=== PATIENT | female | born 1995 | race Caucasian/White ===

== ENCOUNTER 2020-02-05 21:42 | Observation (INO) ==
[2020-02-05] MEDS ORDERED: Ondansetron 4 MG/2 ML VIAL IVP ONE (22:13)
[2020-02-05] MEDS ORDERED: 0.9 % Sodium Chloride 1,000 ML IVC ONE (22:13)
[2020-02-05 22:21] LABS: Basophils # 0.1 K/mcL (0.0-0.2); Basophils % 0.3 %; Eosinophils # 0.1 K/mcL (0.0-0.6); Eosinophils % 0.5 %; Hematocrit 37.6 % (35.3-44.9); Hemoglobin 12.9 g/dL (11.5-15.4); Immature Granulocytes % 0.8 % (0-4); Lymphocytes # 2.3 K/mcL (0.6-4.6); Lymphocytes % 14.6 %; Mean Corpuscular HGB Conc 34.3 g/dL (31.6-35.5); Mean Corpuscular Hemoglobin 30.8 pg (28.0-33.3); Mean Corpuscular Volume 89.7 fL (83.0-100.0); Mean Platelet Volume 9.2 fL (9.4-12.4); Monocytes # 0.8 K/mcL (0.0-1.3); Monocytes % 4.9 %; Neutrophils # 12.2 K/mcL (1.6-8.9); Platelet Count 377 K/mcL (140-400); Red Blood Count 4.19 M/mcL (3.82-4.97); Red Cell Distribution Width 12.2 % (11.5-14.5); Segmented Neutrophils % 78.9 %; White Blood Count 15.5 K/mcL (4.3-11.1)
[2020-02-05 22:42] LABS: Alanine Aminotransferase 9 Units/L (7-52); Albumin 4.1 g/dL (3.5-5.7); Albumin/Globulin Ratio 1.3 (1.1-2.2); Alkaline Phosphatase 63 Units/L (34-104); Aspartate Amino Transferase 13 Units/L (13-39); BUN/Creatinine Ratio 15 (6-26); Bilirubin,Total 0.7 mg/dL (0.3-1.0); Blood Urea Nitrogen 9 mg/dL (6-20); Calcium 9.2 mg/dL (8.6-10.3); Carbon Dioxide 21 mEq/L (23-29); Chloride 104 mEq/L (98-107); Globulin 3.1 g/dL (2.4-3.5); Glucose 94 mg/dL (70-105); Magnesium 1.9 mg/dL (1.6-2.6); Osmolality,Calculated 278 (280-300); Phosphorous 4.1 mg/dL (2.7-4.5); Potassium 3.6 mEq/L (3.5-5.1); Sodium 135 mEq/L (136-145); Total Protein 7.2 g/dL (6.4-8.9); eGFR For African Americans > 60 (> 60); eGFR For Non-African Americans > 60 (> 60)
[2020-02-05 23:50] LABS: Bacteria,Urine Few per hpf (None-Few); Bilirubin,Urine Negative (Negative); Blood,Urine Negative (Negative); Clarity,Urine Turbid (Clear); Color,Urine Yellow (Yellow); Glucose,Urine (UA) Normal (Normal); Ketones,Urine 40 mg/dL (Negative); Leukocyte Esterase,Urine Large (Negative); Mucus,Urine Many per lpf (None-Few); Nitrite,Urine Negative (Negative); PH,Urine 6.5 pH Units (5.0-8.0); Protein,Urine 30 mg/dL (Neg-Trace); Squamous Epithelial Cell,Urine Moderate per hpf (None-Few); Urobilinogen,Urine Normal (Normal)
[2020-02-06] MEDS ORDERED: Ondansetron 4 MG/2 ML VIAL IVP ONE (00:23)
[2020-02-06] MEDS ORDERED: Metoclopramide 10 MG/2 ML VIAL IVP ONE (04:36)
[2020-02-06] MEDS ORDERED: cefTRIAXone 1,000 MG in Water for inj. (sterile) 10 ML IVP ONE (05:36)
[2020-02-06] MEDS ORDERED: Naloxone 0.4 MG/ML INJ IVP PRN (06:17)
[2020-02-06] MEDS ORDERED: Ondansetron 4 MG/2 ML VIAL IVP PRN ×2 (06:17→06:46)
[2020-02-06] MEDS ORDERED: Ringers Solution, Lactated 1,000 ML IVC SCH ×2 (06:30→07:00)
[2020-02-06] MEDS ORDERED: cefTRIAXone 1,000 MG in 0.9 % Sodium Chloride Mini Bag 100 ML IVPB SCH (07:00)
[2020-02-06] MEDS ORDERED: Prenatal Vit/FA 1 EACH TABLET PO SCH (09:00)
[2020-02-06 09:25] LABS: Basophils % 0.4 %; Eosinophils # 0.1 K/mcL (0.0-0.6); Eosinophils % 0.7 %; Hematocrit 32.6 % (35.3-44.9); Immature Granulocytes % 0.8 % (0-4); Lymphocytes # 1.7 K/mcL (0.6-4.6); Lymphocytes % 14.6 %; Mean Corpuscular HGB Conc 33.7 g/dL (31.6-35.5); Mean Corpuscular Hemoglobin 30.6 pg (28.0-33.3); Mean Corpuscular Volume 90.8 fL (83.0-100.0); Mean Platelet Volume 9.5 fL (9.4-12.4); Monocytes # 0.5 K/mcL (0.0-1.3); Platelet Count 319 K/mcL (140-400); Red Blood Count 3.59 M/mcL (3.82-4.97); Red Cell Distribution Width 12.3 % (11.5-14.5); Segmented Neutrophils % 79.5 %; White Blood Count 11.3 K/mcL (4.3-11.1)
[2020-02-06 09:56] LABS: BUN/Creatinine Ratio 13 (6-26); Blood Urea Nitrogen 7 mg/dL (6-20); Carbon Dioxide 20 mEq/L (23-29); Chloride 107 mEq/L (98-107); Potassium 3.7 mEq/L (3.5-5.1); Sodium 135 mEq/L (136-145); eGFR For African Americans > 60 (> 60)
[2020-02-06 09:57] LABS: Calcium 8.6 mg/dL (8.6-10.3); Glucose 83 mg/dL (70-105); Magnesium 1.8 mg/dL (1.6-2.6); Osmolality,Calculated 277 (280-300); Phosphorous 4.1 mg/dL (2.7-4.5); eGFR For Non-African Americans > 60 (> 60)
[2020-02-06 11:22] VITALS: BP 99/61
[2020-02-07] MEDS ORDERED: cefTRIAXone 1,000 MG in Water for inj. (sterile) 10 ML IVP SCH (06:00)
== END 2020-02-06 14:30 | disposition home or self-care (01) ==
LOC: 3BNU 21:42 → EMEROOARM 21:42 → SUATTDRO 02-06 05:54 → 3BNU 02-06 06:30 → UNDODISOB 02-06 06:33
PROVIDERS: ADMIT Family Medicine; ATTEND Internal Medicine

== ENCOUNTER → 2021-08-22 00:30 | Observation (INO) ==
[2021-08-21 23:21] LABS: Bacteria,Urine Few per hpf (None-Few); Bilirubin,Urine Negative (Negative); Blood,Urine Negative (Negative); Clarity,Urine Turbid (Clear); Color,Urine Yellow (Yellow); Glucose,Urine (UA) Normal (Normal); Ketones,Urine 40 mg/dL (Negative); Leukocyte Esterase,Urine Trace (Negative); Mucus,Urine Moderate per lpf (None-Few); Nitrite,Urine Negative (Negative); Protein,Urine Trace mg/dL (Neg-Trace); RBC,Urine 0-3 per hpf (0-3); Specific Gravity,Urine 1.019 (1.010-1.025); Squamous Epithelial Cell,Urine Few per hpf (None-Few); Urobilinogen,Urine Normal (Normal); WBC,Urine 0-3 per hpf (0-3)
[~2021-08-22 00:30] MED LIST: Betamethasone Acet/SodPhos 30 MG/5 ML VIAL IM SCH; Indomethacin 25 MG CAPSULE PO ONE; Indomethacin 25 MG CAPSULE PO STA; Ringers Solution, Lactated 1,000 ML IVC SCH; Ringers Solution, Lactated 1,000 ML ONE
== END | disposition home or self-care (01) ==
LOC: 1NENULAB
PROVIDERS: ADMIT Obstetrics & Gynecology; ATTEND Obstetrics & Gynecology

== ENCOUNTER → 2021-08-22 23:40 | Observation (INO) ==
[~2021-08-22 23:40] MED LIST changes: +Betamethasone Acet/SodPhos 30 MG/5 ML VIAL IM ONE; -Betamethasone Acet/SodPhos 30 MG/5 ML VIAL IM SCH; -Indomethacin 25 MG CAPSULE PO ONE; -Indomethacin 25 MG CAPSULE PO STA; -Ringers Solution, Lactated 1,000 ML IVC SCH; -Ringers Solution, Lactated 1,000 ML ONE
== END | disposition home or self-care (01) ==
LOC: 1NENULAB
PROVIDERS: ADMIT Advanced Practice Midwife; ATTEND Advanced Practice Midwife

== ENCOUNTER 2021-09-12 12:24 | Inpatient (IN) ==
[2021-09-12] MEDS: Ringers Solution, Lactated 1,000 ML IVC ONE ×2 (11:03→12:13)
[2021-09-12 11:28] LABS: Bacteria,Urine Few per hpf (None-Few); Bilirubin,Urine Negative (Negative); Blood,Urine Negative (Negative); Clarity,Urine Turbid (Clear); Color,Urine Light-Yellow (Yellow); Glucose,Urine (UA) Normal (Normal); Ketones,Urine 40 mg/dL (Negative); Leukocyte Esterase,Urine Moderate (Negative); Mucus,Urine Few per lpf (None-Few); Nitrite,Urine Negative (Negative); Protein,Urine Trace mg/dL (Neg-Trace); Specific Gravity,Urine 1.012 (1.010-1.025); Squamous Epithelial Cell,Urine Many per hpf (None-Few); Urobilinogen,Urine Normal (Normal)
[2021-09-12 11:32] LABS: Amphetamine Screen,Urine Negative ng/mL (Cutoff=1000); Barbiturate Screen,Urine Negative ng/mL (Cutoff=200); Benzodiazepines Screen,Urine Negative ng/mL (Cutoff=200); Cannabinoid Screen,Urine Negative ng/mL (Cutoff = 50); Cocaine Screen,Urine Negative ng/mL (Cutoff= 300); Opiate Screen,Urine Negative ng/mL (Cutoff=300); Phencyclidine Screen,Urine Negative ng/mL (Cutoff=25)
[2021-09-12 11:45] LABS: Basophils # 0.1 K/mcL (0.0-0.2); Basophils % 0.8 %; Eosinophils # 0.2 K/mcL (0.0-0.6); Eosinophils % 1.3 %; Hematocrit 33.5 % (35.3-44.9); Hemoglobin 10.9 g/dL (11.5-15.4); Immature Granulocytes % 3.2 % (0-4); Lymphocytes # 2.4 K/mcL (0.6-4.6); Mean Corpuscular HGB Conc 32.5 g/dL (31.6-35.5); Mean Corpuscular Hemoglobin 28.4 pg (28.0-33.3); Mean Corpuscular Volume 87.2 fL (83.0-100.0); Mean Platelet Volume 10.4 fL (9.4-12.4); Monocytes # 0.9 K/mcL (0.0-1.3); Monocytes % 6.6 %; Neutrophils # 10.2 K/mcL (1.6-8.9); Platelet Count 267 K/mcL (140-400); Red Blood Count 3.84 M/mcL (3.82-4.97); Red Cell Distribution Width 15.9 % (11.5-14.5); Segmented Neutrophils % 71.1 %; White Blood Count 14.3 K/mcL (4.3-11.1)
[~2021-09-12 12:24] MED LIST changes: +*HR* FentaNYL (PF) 100 MCG/2 ML VIAL ONE; +*HR* Morphine Sulfate/PF 10 MG/10 ML AMPUL ONE; +Acetaminophen IV 1,000 MG/100 ML BAG IVPB ONE; -Betamethasone Acet/SodPhos 30 MG/5 ML VIAL IM ONE; +Betamethasone Acet/SodPhos 30 MG/5 ML VIAL IM SCH; +CeFAZolin 2,000 MG/120 ML BAG IVPB ONE; +EPHEDrine 50 MG/ML VIAL ONE; +Famotidine 20 MG/2 ML VIAL IVP ONE; +Metoclopramide 10 MG/2 ML VIAL IVP ONE; +OXYTOCIN/RINGERS LACTATE 10 UNIT/166.6 ML BAG IVC ONE; +Ondansetron 4 MG/2 ML VIAL ONE; +Oxytocin 30 UNIT/503 ML BAG IVC SCH; +Ringers Solution, Lactated 1,000 ML IVC SCH; +Ringers Solution, Lactated 1,000 ML ONE
[2021-09-12] MEDS ORDERED: *HR* HYDROmorphone PF 0.5 MG/0.5 ML SYRINGE IVP PRN (13:10)
[2021-09-12] MEDS ORDERED: Ondansetron 4 MG/2 ML VIAL IVP PRN ×2 (13:10→16:57)
[2021-09-12] MEDS ORDERED: Ringers Solution, Lactated 1,000 ML ONE (13:14)
[2021-09-12] MEDS ORDERED: Ringers Solution, Lactated 1,000 ML IVC SCH ×2 (13:15→16:57)
[2021-09-12] MEDS ORDERED: Ketorolac 30 MG/ML VIAL ONE (13:20)
[2021-09-12] MEDS ORDERED: *HR* OxyCODONE Immed Rel 5 MG TABLET PO PRN (16:57)
[2021-09-12] MEDS ORDERED: Oxytocin 30 UNIT/503 ML BAG IVC SCH (16:57)
[2021-09-12] MEDS ORDERED: Metoclopramide 10 MG/2 ML VIAL IVP PRN (16:57)
[2021-09-12] MEDS ORDERED: OXYTOCIN/RINGERS LACTATE 10 UNIT/166.6 ML BAG IVC ONE (16:57)
[2021-09-12] MEDS ORDERED: *HR* Nalbuphine 10 MG/ML AMPUL IV ONE (17:02)
[2021-09-12] MEDS: Simethicone 80 MG TAB.CHEW PO SCH (19:49)
[2021-09-12] MEDS: Acetaminophen 325 MG TABLET PO SCH (19:49)
[2021-09-12] MEDS: Ibuprofen 600 MG TABLET PO SCH (19:49)
[2021-09-13] MEDS: Ibuprofen 600 MG TABLET PO SCH ×4 (04:20→23:39)
[2021-09-13] MEDS: Acetaminophen 325 MG TABLET PO SCH ×6 (04:20→23:39)
[2021-09-13 05:18] LABS: Basophils # 0.1 K/mcL (0.0-0.2); Basophils % 0.3 %; Eosinophils % 0.1 %; Hematocrit 29.2 % (35.3-44.9); Immature Granulocytes % 2.1 % (0-4); Lymphocytes # 2.4 K/mcL (0.6-4.6); Lymphocytes % 13.6 %; Mean Corpuscular HGB Conc 31.5 g/dL (31.6-35.5); Mean Corpuscular Hemoglobin 28.7 pg (28.0-33.3); Mean Platelet Volume 10.6 fL (9.4-12.4); Monocytes # 1.2 K/mcL (0.0-1.3); Monocytes % 6.7 %; Neutrophils # 13.7 K/mcL (1.6-8.9); Platelet Count 259 K/mcL (140-400); Red Blood Count 3.21 M/mcL (3.82-4.97); Red Cell Distribution Width 15.9 % (11.5-14.5); Segmented Neutrophils % 77.2 %; White Blood Count 17.7 K/mcL (4.3-11.1)
[2021-09-13 06:02] LABS: Hemoglobin 9.2 g/dL (11.5-15.4)
[2021-09-13] MEDS: Simethicone 80 MG TAB.CHEW PO SCH ×4 (09:00→23:37)
[2021-09-13] MEDS: Prenatal Vit/FA 1 EACH TABLET PO SCH (09:00)
[2021-09-14] MEDS: Ibuprofen 600 MG TABLET PO SCH ×2 (06:12→07:46)
[2021-09-14 07:12] VITALS: BP 98/56; PULSE 64; TEMP 98.4; O2SAT 98
[2021-09-14] MEDS: Prenatal Vit/FA 1 EACH TABLET PO SCH (07:46)
[2021-09-14] MEDS: Simethicone 80 MG TAB.CHEW PO SCH (07:46)
[2021-09-14] MEDS: Acetaminophen 325 MG TABLET PO SCH (07:46)
== END 2021-09-14 13:02 | disposition home or self-care (01) | DRG 540 ==
LOC: 1NENULAB → 1NENUOBS 16:13
PROVIDERS: ADMIT Obstetrics & Gynecology; ATTEND Obstetrics & Gynecology